=== PATIENT | female | born 1985 | race Caucasian/White ===

== ENCOUNTER 2018-10-02 05:21 | Inpatient (IN) | payer BC ==
[2018-10-02] MEDS ORDERED: Bicitra 30 ML UDCUP PO SCH (05:32)
[2018-10-02] MEDS ORDERED: Promethazine HCl 25 MG/ML VIAL IM PRN ×3 (05:32→10:19)
[2018-10-02] MEDS ORDERED: Lactated Ringer's 1,000 ML IV SCH ×2 (05:32)
[2018-10-02] MEDS ORDERED: Ondansetron PF 4 MG/2 ML Vial IVP PRN ×3 (05:32→10:19)
[2018-10-02] MEDS ORDERED: CEFAZOLIN 2 GM in Premix Bag 1 BAG IVPB SCH (05:32)
[2018-10-02 05:53] VITALS: BMI 43.9
[2018-10-02 06:17] LABS: Hemoglobin 12.2 g/dL (12.0-16.0); Mean Corpuscular HGB CONC 32.5 g/dL (32.0-36.0); Mean Corpuscular Hemoglobin 30.8 pg (27.0-31.0); Mean Corpuscular Volume 94.7 fL (78.0-98.0); Platelet Count 307 thou/uL (130-400); RBC Distribution Width 12.4 % (11.5-14.5); Red Blood Cell (RBC) Count 3.96 mill/uL (4.20-5.40); White Blood Cell (WBC) Count 10.4 thou/uL (4.8-10.8)
[2018-10-02 07:00] LABS: HBSAg Index 0.18 S/CO (0-0.99); Hep B Surf Ag Non-Reactive S/CO (NonReactive); Syphilis Antibody Nonreactive (Nonreactive); Syphilis Antibody Index 0.05 S/CO (<1.00 Non-Reactive)
[2018-10-02] MEDS ORDERED: MORPHINE 5 MG/10 ML PF VIAL ONE (07:21)
[2018-10-02] MEDS ORDERED: Ondansetron PF 4 MG/2 ML Vial ONE ×4 (07:23→13:35)
[2018-10-02] MEDS ORDERED: PHENYLEPHRINE-NS 100 MCG/ML 10 ML SYRINGE ONE ×2 (07:23→13:35)
[2018-10-02] MEDS ORDERED: Ketorolac Tromethamine 30 MG/ML VIAL ONE ×2 (07:23→13:35)
[2018-10-02] MEDS ORDERED: Dexamethasone 4 mg/ml Vial ONE (07:23)
[2018-10-02] MEDS ORDERED: Oxytocin 10 UNITS/ML VIAL ONE (07:23)
--- NOTE | 2018-10-02 08:22 | PDOC.OPDEL ---
OB Operative/Delivery Note Delivery Dr/Surgeon: colton Assist: rene Pre-Delivery Diagnosis: scheduled section (breech prior cs left ut unicornis) Procedure/Post Delivery Dx: repeat low transverse CS Weeks gestation: 39 Anesthesia: spinal - Findings A Sex: male Weight: 0 oz - 1 min: 9 - 5 min: 9 - Additional Findings/Plan Placenta delivered: manual removal Repaired Obstetrical Laceration: none findings: low transverse hysterotomy without extension, other (absent r ovary and tube. ut unicornis left) Estimated blood loss: 500 Post delivery plan: routine recovery
[2018-10-02] MEDS ORDERED: Meperidine HCl/PF 25 MG/ML VIAL SLOW IVP PRN (08:37)
[2018-10-02] MEDS ORDERED: Naloxone HCl 0.4 mg/ml Vial IV PRN (08:37)
[2018-10-02] MEDS ORDERED: diphenhydrAMINE 50 MG/ML VIAL IVP PRN (08:37)
[2018-10-02] MEDS ORDERED: HYDROmorphone 2 MG/ML VIAL SLOW IVP PRN (08:37)
[2018-10-02] MEDS ORDERED: Ondansetron HCl/PF 4 MG/2 ML Vial IVP PRN (08:37)
[2018-10-02] MEDS ORDERED: Eucerin (Mineral Oil/Petrolatum,White) 30 gm Jar TOP PRN (08:37)
[2018-10-02] MEDS ORDERED: Ketorolac Tromethamine 30 MG/ML VIAL IVP PRN (08:37)
[2018-10-02] MEDS ORDERED: Promethazine HCl 25 MG SUPP PR PRN (08:37)
[2018-10-02] MEDS ORDERED: L&D-Morphine 4 MG/ML VIAL SLOW IVP PRN (08:37)
[2018-10-02] MEDS ORDERED: Naloxone HCl 0.4 mg/ml Vial IVP PRN ×2 (08:37)
[2018-10-02] MEDS ORDERED: Ketorolac Tromethamine 30 MG/ML VIAL IVP SCH (08:45)
[2018-10-02] MEDS ORDERED: Communication Order-Pharmacy FS SCH (08:45)
--- NOTE | 2018-10-02 09:30 | OP ---
DATE OF PROCEDURE: 10/02/2018 PREOPERATIVE DIAGNOSES: 1. Prior section x1, breech presentation. 2. 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 POSTOPERATIVE DIAGNOSES: 1. Prior section x1, breech presentation. 2. 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 PROCEDURE PERFORMED: Repeat low transverse section without extension. ASSISTANTS: 1. BLANCA Smallwood. 2. Marcelo Winters DO. ANESTHESIA: Subarachnoid block, Tacho Gill CRNA. MEDICATIONS: 2 g Ancef. PREINCISION: DVT prophylaxis with SCDs. DRAINS: Pulido to gravity. ESTIMATED BLOOD LOSS: Approximately 500 mL. QBL: Pending. OPERATIVE FINDINGS: 1. Male infant, dario breech presentation, clear fluid. Apgars 9 and 9, weight pending, to nursery. 2. Uterus consistent with expected left unicornis with absence of right adnexa. 3. Normal-appearing left tube and ovary. 4. Hemostasis, clear urine. COUNTS: Correct at the end of the procedure. DISPOSITION: Recovery room in good condition. DESCRIPTION OF PROCEDURE: After obtaining appropriate operative consent, the patient was taken to the operating room where subarachnoid block was achieved without difficulty. The patient was prepped and draped in usual manner. Previous Pfannenstiel incision identified, incised sharply and carried down to the fascia. The midline was incised sharply, divided superiorly and laterally, was dissected off the rectus superiorly and inferiorly. Rectus divided in the midline. Peritoneum was entered bluntly, taking care to avoid trauma to the underlying viscera. Mynor O retractor placed inside, level of previous hysterotomy was identified and bladder was noted to be well below this. Low-transverse hysterotomy was made with care to avoid laceration to the 's breech. It was extended superiorly and laterally with finger fractionization. Amniotomy was performed. Clear fluid was noted. 's breech was elevated to the hysterotomy, delivered in a usual corkscrew manner. The infant delivered maintaining flexion of the head. The was suctioned. Cord clamped and cut, handed off to the team in attendance. Usual cord blood sample obtained. Placenta removed manually. Uterus left in situ and hysterotomy noted to be without extension. It was closed using a running locking #1 Monocryl suture x1. Good hemostasis was noted. The gutters were irrigated out bilaterally and reinspection hysterotomy revealed it to be dry. The Mynor O retractor was removed. Rectus was inspected and noted to be dry. Counts were correct x1. Fascia reapproximated using running continuous 0 PDS suture x2. Subcutaneous tissue irrigated, rendered hemostatic with Bovie cautery, reapproximated using a 2-0 plain gut. Skin was reapproximated using a 4-0 Monocryl and Dermabond. The patient was taken to recovery room in good condition. Job ID: [id number]
[2018-10-02] MEDS ORDERED: Prenatal Vitamin 1 TAB PO SCH ×2 (10:19→10:45)
[2018-10-02] MEDS ORDERED: Meperidine HCl/PF 25 MG/ML VIAL IM PRN (10:19)
[2018-10-02] MEDS ORDERED: Docusate Calcium (SURFAK) 240 MG CAP PO SCH ×2 (10:19→10:45)
[2018-10-02] MEDS ORDERED: HYDROcodone/Acetaminophen 5/325 mg Tablet PO PRN ×4 (10:19→22:58)
[2018-10-02] MEDS ORDERED: Adacel (T-DAP) 0.5 ML SYRINGE IM ONE (10:19)
[2018-10-02] MEDS ORDERED: Lanolin Ointment 7 GM TUBE TOP PRN (10:19)
[2018-10-02] MEDS ORDERED: NS / Oxytocin 40 units/1000ml 1,000 ML IV SCH (10:19)
[2018-10-02] MEDS ORDERED: diphenhydrAMINE 25 MG CAP PO PRN (10:19)
[2018-10-02] MEDS ORDERED: Bisacodyl 10 MG SUPP PR PRN (10:19)
[2018-10-02] MEDS: Ibuprofen 800 MG TAB PO SCH ×2 (11:22→21:22)
[2018-10-02] MEDS ORDERED: Dexamethasone 20 MG/5 ML VIAL ONE (13:35)
[2018-10-02] MEDS: Docusate Calcium (SURFAK) 240 MG CAP PO SCH (21:22)
[2018-10-03] MEDS: HYDROcodone/Acetaminophen 5/325 mg Tablet PO PRN ×4 (00:04→20:23)
[2018-10-03] MEDS: Simethicone Chewable 80 MG TAB PO PRN ×2 (03:28→20:23)
[2018-10-03 06:08] LABS: Hemoglobin 10.2 g/dL (12.0-16.0); Mean Corpuscular HGB CONC 32.9 g/dL (32.0-36.0); Mean Corpuscular Hemoglobin 31.7 pg (27.0-31.0); Mean Corpuscular Volume 96.4 fL (78.0-98.0); Platelet Count 265 thou/uL (130-400); RBC Distribution Width 12.5 % (11.5-14.5); Red Blood Cell (RBC) Count 3.21 mill/uL (4.20-5.40); White Blood Cell (WBC) Count 11.7 thou/uL (4.8-10.8)
[2018-10-03] MEDS: Docusate Calcium (SURFAK) 240 MG CAP PO SCH ×2 (08:36→20:23)
[2018-10-03] MEDS: Prenatal Vitamin 1 TAB PO SCH (08:36)
[2018-10-03] MEDS: Ibuprofen 800 MG TAB PO SCH ×3 (08:36→21:25)
[2018-10-04] MEDS: HYDROcodone/Acetaminophen 5/325 mg Tablet PO PRN ×2 (00:28→08:07)
[2018-10-04] MEDS: Simethicone Chewable 80 MG TAB PO PRN (06:15)
[2018-10-04] MEDS: Ibuprofen 800 MG TAB PO SCH (06:15)
[2018-10-04 07:52] VITALS: BP 118/73; TEMP 97.9
[2018-10-04] MEDS: Docusate Calcium (SURFAK) 240 MG CAP PO SCH (08:07)
[2018-10-04] MEDS: Prenatal Vitamin 1 TAB PO SCH (08:07)
== END 2018-10-04 12:20 | disposition home or self-care (01) | DRG 788 ==
LOC: L&D 05:21 → 3SW 10:43
PROVIDERS: ADMIT Obstetrics & Gynecology; ATTEND Obstetrics & Gynecology
PROC: 10D00Z1 Extraction of Products of Conception, Low, Open Approach (ICD-10-PCS; principal; 2018-10-02)
PROC: 10907ZC Drainage of Amniotic Fluid, Therapeutic from Products of Conception, Via Natural or Artificial Opening (ICD-10-PCS; 2018-10-02)
DX: O32.1XX0 Maternal care for breech presentation, not applicable or unspecified (principal); Z3A.39 39 weeks gestation of pregnancy; Z37.0 Single live birth; O34.211 Maternal care for low transverse scar from previous cesarean delivery; O34.03 Maternal care for unspecified congenital malformation of uterus, third trimester; Q51.4 Unicornate uterus; Z90.5 Acquired absence of kidney; Z90.721 Acquired absence of ovaries, unilateral; Z88.2 Allergy status to sulfonamides
CPT/HCPCS: 36415; 51702; 85027; 86780; 86850; 86900; 86901; 87340; J1100; J1885; J2270; J2405; J2590

== ENCOUNTER 2019-06-26 16:14 | Outpatient (CLI) | payer BC | END 2019-06-26 16:15 | disposition home or self-care (01) | LOC: CTENTCT 16:14 | PROVIDERS: ATTEND Otolaryngology Plastic Surgery within the Head & Neck | DX: J34.2 Deviated nasal septum (principal) | CPT/HCPCS: 70486 ==

== ENCOUNTER 2019-07-12 23:25 | Emergency (ER) | payer BC ==
[2019-07-12 23:55] LABS: Bilirubin Negative (Negative); Blood, Urine Negative (Negative); Clarity Turbid (Clear); Glucose, Urine (Dipstick) Normal (Negative); Leukocyte Negative Leu/uL (Negative); Nitrite Negative (Negative); Pregnancy Test - Urine (BHCG) Negative (Negative); Pregu Control Background? CLEAR/WHITE (CLR/WHITE); Pregu Control Bar Appear? YES (CONTROL BAR); Protein, Urine (Dipstick) 20 mg/dL (Neg-Trace)
[2019-07-12 23:57] LABS: Specific Gravity 1.035 (1.002-1.036)
[2019-07-13 00:26] LABS: #Basophils 0.1 thou/uL (0.0-0.2); #Eosinphils 0.2 thou/uL (0.0-0.7); #Lymphocytes 3.6 thou/uL (1.20-3.40); #Monocytes 0.4 thou/uL (0.11-0.59); #Neutrophils 3.4 thou/uL (1.40-6.50); %Basophils 1.3 % (0.0-1.0); %Eosinophils 3.2 % (0.0-10.0); %Lymphocytes 46.6 % (21.0-51.0); %Monocytes 5.5 % (0.0-10.0); %Neutrophils 43.4 % (42.0-75.0); Hemoglobin 13.2 g/dL (12.0-16.0); Mean Corpuscular HGB CONC 33.7 g/dL (32.0-36.0); Mean Corpuscular Hemoglobin 31.8 pg (27.0-31.0); Mean Corpuscular Volume 94.3 fL (78.0-98.0); Mean Platelet Volume 6.8 fL (7.4-10.4); Platelet Count 280 thou/uL (130-400); RBC Distribution Width 11.6 % (11.5-14.5); Red Blood Cell (RBC) Count 4.15 mill/uL (4.20-5.40); White Blood Cell (WBC) Count 7.7 thou/uL (4.8-10.8)
[2019-07-13 00:45] LABS: ALT (SGPT) 13 U/L (8-55); AST (SGOT) 15 U/L (5-34); Albumin 4.2 g/dL (3.5-5.0); Alkaline Phosphatase 70 U/L (40-110); Anion Gap 9 mmol/L (10-20); BUN (Urea Nitrogen) 15 mg/dL (7.0-18.7); Bilirubin, Total 0.3 mg/dL (0.2-1.2); Calc. Creatinine Clearance 0 mL/min (70-130); Calcium 9.1 mg/dL (7.8-10.44); Carbon Dioxide 28 mmol/L (22-29); Chloride 104 mmol/L (98-107); Estimated GFR-MDRD 61; Globulin 2.9 g/dL (2.4-3.5); Glucose 90 mg/dL (70-105); Lipase 21 U/L (8-78); Protein, Total 7.1 g/dL (6.0-8.3); Sodium 137 mmol/L (136-145)
== END 2019-07-13 03:30 | disposition home or self-care (01) ==
LOC: ERS 23:25
DX: R19.7 Diarrhea, unspecified (principal); R10.30 Lower abdominal pain, unspecified
CPT/HCPCS: 36415; 80053; 81003; 81025; 83690; 85025; 99284

== ENCOUNTER 2019-07-16 08:01 | Day surgery (SDC) | payer BC ==
[2019-07-15 09:26] VITALS: BMI 37.6
[2019-07-16] MEDS ORDERED: Fentanyl 250 MCG/5 ML VIAL ONE (08:22)
[2019-07-16] MEDS ORDERED: Scopolamine 1.5 mg/72 hour Patch ONE (08:29)
[2019-07-16] MEDS ORDERED: Lidocaine 1% w/Epinephrine 1:100K 20 ML VIAL ONE (09:50)
[2019-07-16] MEDS ORDERED: Midazolam HCl 2 mg/2 ml Vial ONE (09:52)
[2019-07-16] MEDS ORDERED: Propofol 500 MG/50 ML VIAL ONE (09:54)
[2019-07-16] MEDS ORDERED: Lidocaine 1% PF 5 ML VIAL ONE (10:31)
[2019-07-16] MEDS ORDERED: Ondansetron PF 4 MG/2 ML Vial ONE (10:31)
[2019-07-16] MEDS ORDERED: ePHEDrine/0.9% NaCl/PF SYRINGE 50 mg/10 ml ONE (10:31)
[2019-07-16] MEDS ORDERED: Rocuronium Bromide 10 MG/ML (10ML VIAL) ONE (10:31)
[2019-07-16] MEDS ORDERED: PROPOFOL 200 MG/20 ML VIAL ONE (10:31)
[2019-07-16] MEDS ORDERED: Fentanyl 100 MCG/2 ML VIAL ONE (10:53)
[2019-07-16] MEDS ORDERED: hydrALAZINE 20 MG/ML VIAL ONE (11:08)
--- NOTE | 2019-07-18 09:35 | OP ---
DATE OF PROCEDURE: 07/16/2019 PREOPERATIVE DIAGNOSES: 1. Chronic rhinosinusitis. 2. Bilateral inferior turbinate hypertrophy. 3. Nasal obstruction. POSTOPERATIVE DIAGNOSES: 1. Chronic rhinosinusitis. 2. Bilateral inferior turbinate hypertrophy. 3. Nasal obstruction. PROCEDURES PERFORMED: 1. Bilateral endoscopic sinus surgery, total ethmoidectomies. 2. Bilateral endoscopic sinus surgery, maxillary antrostomies. 3. Bilateral endoscopic sinus surgery, frontal sinusotomies. 4. Bilateral inferior turbinate submucosal resection. ESTIMATED BLOOD LOSS: 20 mL. COMPLICATIONS: None. ANESTHESIA: GETA. DESCRIPTION OF PROCEDURE: After consent was obtained, the patient was identified, brought to the operating room, and placed on the operating table in the supine position. General endotracheal anesthesia and intravenous access were obtained and we proceeded with positioning the patient for oropharyngeal surgery. Following this, 1% lidocaine with 1:100,000 epinephrine were injected into the middle turbinates and lateral nasal wall bilaterally. Following this, the 0-degree endoscope was used to visualize the middle turbinate and the middle turbinate was medially fractured using a Sorrento elevator. Following this, the uncinate process was identified and was examined. The uncinate process was noted to be inflamed and laterally displaced bilaterally. Following this, a ball-ended probe was used to anteriorly fracture the uncinate process bilaterally. Following this, the 0-degree microdebrider and the up-biting Blakesley forceps were used to remove the uncinate process bilaterally. Following this, the natural maxillary sinus ostia was identified with the 0-degree endoscope and the ball-ended probe. The natural maxillary ostia were then widened using a 40-degree microdebrider and the straight Blakesley forceps bilaterally. Following this, the ethmoidal bulla was identified bilaterally. A 0-degree microdebrider was used to puncture the ethmoidal bulla on its medial and inferior aspect bilaterally. Following this, the 0-degree microdebrider and the up-biting Blakesley forceps were used to remove the ethmoidal bulla. Following this, the grand lamella was identified posterior to this area and was punctured using the 0-degree microdebrider bilaterally. Following this, the ethmoidal cells were opened from the posterior to the anterior using the 0-degree microdebrider, the 40-degree microdebrider and the up-biting Blakesley forceps bilaterally. Following this, the 45-degree endoscope and the 40-degree microdebrider blade were used to further remove the anterior ethmoidal cells to the level of the frontal sinus recess bilaterally. Following this, the 45-degree endoscope was advanced into the middle meatus. The nasofrontal duct, which was markedly narrowed was then widened using a 40-degree microdebrider blade and the up-biting Blakesley forceps. Following this, the frontal sinus ostia was visualized bilaterally and was widened by removing bony tissue with the 40-degree microdebrider blade and the up-biting Blakesley forceps bilaterally. Following this, the inferior turbinates were then punctured on the anterior inferior aspect with a submucosal microdebrider and submucosal resection was performed of the anterior and inferior turbinates bilaterally. Following this, the nasal cavity was irrigated. NasoPore packing was placed within the middle meatus. The patient tolerated the procedure well. Job ID: [id number]
== END 2019-07-16 14:00 | disposition home or self-care (01) ==
LOC: SDC 08:01
PROVIDERS: ATTEND Otolaryngology Plastic Surgery within the Head & Neck
PROC: 09BT8ZZ Excision of Left Frontal Sinus, Via Natural or Artificial Opening Endoscopic (ICD-10-PCS; principal; 2019-07-16)
PROC: 099R8ZZ Drainage of Left Maxillary Sinus, Via Natural or Artificial Opening Endoscopic (ICD-10-PCS; principal; 2019-07-16)
PROC: 09BV8ZZ Excision of Left Ethmoid Sinus, Via Natural or Artificial Opening Endoscopic (ICD-10-PCS; principal; 2019-07-16)
PROC: 09BL8ZZ Excision of Nasal Turbinate, Via Natural or Artificial Opening Endoscopic (ICD-10-PCS; principal; 2019-07-16)
PROC: 09BS8ZZ Excision of Right Frontal Sinus, Via Natural or Artificial Opening Endoscopic (ICD-10-PCS; principal; 2019-07-16)
PROC: 09BU8ZZ Excision of Right Ethmoid Sinus, Via Natural or Artificial Opening Endoscopic (ICD-10-PCS; principal; 2019-07-16)
PROC: 099Q8ZZ Drainage of Right Maxillary Sinus, Via Natural or Artificial Opening Endoscopic (ICD-10-PCS; principal; 2019-07-16)
DX: J32.4 Chronic pansinusitis (principal); J34.2 Deviated nasal septum; J34.3 Hypertrophy of nasal turbinates; Z79.899 Other long term (current) drug therapy; Z88.2 Allergy status to sulfonamides
CPT/HCPCS: 36415; 85014; J0131; J0360; J2001; J2250; J2405; J2704; J3010

== ENCOUNTER 2019-07-17 23:16 | Emergency (ER) | payer BC ==
[2019-07-17 23:49] LABS: Bilirubin Large (Negative); Blood, Urine Large (Negative); Glucose, Urine (Dipstick) 100 mg/dL (Negative); Leukocyte Large (Negative); Nitrite Positive (Negative); Protein, Urine (Dipstick) > or equal to 300 mg/dL (Neg-Trace)
[2019-07-17 23:51] LABS: Bacteria/HPF 1+ HPF (None Seen); Clarity Turbid (Clear); RBC/HPF Greater than 50 HPF (0-3)
[2019-07-17 23:52] LABS: Calcium Oxalate Crystals 1+ HPF (None Seen); Other Microscopic Description Less than 2 mL rec'd
[2019-07-18 00:02] LABS: #Basophils 0.1 thou/uL (0.0-0.2); #Eosinphils 0.2 thou/uL (0.0-0.7); #Lymphocytes 3.9 thou/uL (1.20-3.40); #Monocytes 0.6 thou/uL (0.11-0.59); #Neutrophils 5.3 thou/uL (1.40-6.50); %Basophils 0.9 % (0.0-1.0); %Eosinophils 1.7 % (0.0-10.0); %Lymphocytes 38.7 % (21.0-51.0); %Monocytes 5.9 % (0.0-10.0); %Neutrophils 52.7 % (42.0-75.0); Hemoglobin 13.4 g/dL (12.0-16.0); Mean Corpuscular HGB CONC 32.9 g/dL (32.0-36.0); Mean Corpuscular Hemoglobin 31.8 pg (27.0-31.0); Mean Corpuscular Volume 96.6 fL (78.0-98.0); Mean Platelet Volume 6.8 fL (7.4-10.4); Platelet Count 253 thou/uL (130-400); White Blood Cell (WBC) Count 10.1 thou/uL (4.8-10.8)
[2019-07-18 00:29] LABS: ALT (SGPT) 15 U/L (8-55); AST (SGOT) 12 U/L (5-34); Albumin 4.1 g/dL (3.5-5.0); Alkaline Phosphatase 72 U/L (40-110); Anion Gap 11 mmol/L (10-20); BUN (Urea Nitrogen) 13 mg/dL (7.0-18.7); Bilirubin, Total 0.3 mg/dL (0.2-1.2); Calc. Creatinine Clearance 0 mL/min (70-130); Carbon Dioxide 29 mmol/L (22-29); Chloride 105 mmol/L (98-107); Estimated GFR-MDRD 57; Globulin 2.7 g/dL (2.4-3.5); Glucose 99 mg/dL (70-105); Potassium 3.8 mmol/L (3.5-5.1); Protein, Total 6.8 g/dL (6.0-8.3); Sodium 141 mmol/L (136-145)
[2019-07-18 00:33] LABS: Pregnancy Test - Urine (BHCG) Negative (Negative); Pregu Control Background? CLEAR/WHITE (CLR/WHITE); Pregu Control Bar Appear? YES (CONTROL BAR)
--- NOTE | 2019-07-18 07:45 | CT ---
PRELIMINARY REPORT/[facility]/EMERGENCY AFTER HOURS PROCEDURE CT abdomen and pelvis without contrast: Comparison: No Findings: No significant abnormality in the lung bases. No hydronephrosis or symptomatic urinary calculus. Normal gallbladder. No biliary ductal dilatation. The right kidney is absent. Cannot confirm normal uterus. No abnormal adnexal mass. Normal urinary bl adder. The solid organs are otherwise unremarkable within the limits of a noncontrast study. No bowel obstruction, free fluid, free air, abscess or diverticulitis. Prominent colonic stool. Impression: No hydronephrosis or symptomatic urinary calculus. The right kidney is absent. No nephrolithiasis. Suspicious but not definitive for uterine developmental anomaly. Ultrasound or MRI could be considere d to further evaluate if indicated. ELECTRONICALLY SIGNED BY: Jamal Muller MD Jul 18, 2019 1:40:01 AM VEGETABLE PICKER This report is intended for review by the ordering physician only, in accordance of law. If you recei ve this report in error, please call [facility] at [phone]. FINAL REPORT EMERGENCY AFTER HOURS STUDY CT ABDOMEN NONCONTRAST CT PELVIS NONCONTRAST: (Urolithiasis protocol) DATE: 07/18/2019. HISTORY: A 33-year-old female with hematuria and left flank pain. COMPARISON: None available. TECHNIQUE: IV injection of iodinated contrast media: None. Oral contrast media: None. FINDINGS: Other than for urolithiasis, the lack of IV and oral contrast limits the evaluation. Agree with preliminary report by [facility]. IMPRESSION: 1. Absent right kidney. 2. Uterine anomaly. 3. No urolithiasis or obstructive uropathy involving left tract. 4. No acute findings. Transcribed Date/Time: 07/18/2019 8:53 AM
== END 2019-07-18 02:08 | disposition home or self-care (01) ==
LOC: ERS 23:16
DX: N30.90 Cystitis, unspecified without hematuria (principal); F41.9 Anxiety disorder, unspecified
CPT/HCPCS: 36415; 74176; 80053; 81003; 81015; 81025; 85025; 87086

== ENCOUNTER 2019-08-28 11:08 | Outpatient (CLI) | payer BC ==
--- NOTE | 2019-08-28 13:37 | CT ---
CT PELVIS WITH AND WITHOUT IV CONTRAST; HISTORY: Unicornuate uterus. Lower pelvic pain. COMPARISON: CT abdomen and pelvis without contrast from 07/18/2019. FINDINGS: The uterus is again seen at the left aspect of the pelvis. While a unicornuate uterus is a possibilit y, especially given the clinical history, this is difficult to definitively delineate, based on CT ev aluation, although this uterine anomaly is suggested, especially given the patient's clinical history and the overall smaller size of the uterus than normally expected. There is an increased density structure in the right adnexal region with a low density area centrally . This probably represents the patient's right ovary with ovarian cyst. The left ovary is just distal to the fundus of the uterus. No free fluid, fluid collection or lymphadenopathy is seen in the abdomen or pelvis. Loops of small bowel are normal in caliber and have a normal appearance. A small fat-containing umbilical hernia is seen. Osseous structures have a normal appearance. IMPRESSION: 1. CT findings suggesting a uterine anomaly and possibly representing a unicornuate uterus, however t his would be better evaluated with MRI, depending on clinical concern. 2. Increased density structure, right adnexal region, with low density area centrally. This probably represents the patient's right ovary with associated cyst. POS: KELSEY
[2019-08-28] MEDS ORDERED: Iopamidol-370 76% 500 ML 1 ML ONE (14:31)
== END 2019-08-28 11:09 | disposition home or self-care (01) ==
LOC: BICCT 11:08
PROVIDERS: ATTEND Obstetrics & Gynecology
DX: Q51.4 Unicornate uterus (principal)
CPT/HCPCS: 72194; Q9967

== ENCOUNTER 2019-10-30 05:41 | Outpatient (CLI) | payer BC ==
[2019-10-30 09:44] LABS: Mean Corpuscular HGB CONC 33.2 g/dL (32.0-36.0); Mean Corpuscular Hemoglobin 31.8 pg (27.0-31.0); Mean Corpuscular Volume 95.9 fL (78.0-98.0); Mean Platelet Volume 7.1 fL (7.4-10.4); Platelet Count 278 thou/uL (130-400); Red Blood Cell (RBC) Count 4.41 mill/uL (4.20-5.40); White Blood Cell (WBC) Count 6.4 thou/uL (4.8-10.8)
[2019-10-30 09:51] LABS: BHCG - Serum Negative (NEGATIVE); Pregs Control Background? CLEAR/WHITE (CLR/WHITE); Pregs Control Bar Appear? YES (CONTROL BAR)
== END 2019-10-30 05:42 | disposition home or self-care (01) ==
LOC: LABBT 05:41
PROVIDERS: ATTEND Family Medicine
DX: Z01.812 Encounter for preprocedural laboratory examination (principal); N83.9 Noninflammatory disorder of ovary, fallopian tube and broad ligament, unspecified
CPT/HCPCS: 84703; 85027; 86850; 86900; 86901

== ENCOUNTER 2019-11-04 06:01 | Day surgery (SDC) | payer BC ==
[2019-10-30 08:58] VITALS: BMI 38.0
[2019-11-04] MEDS ORDERED: CeleCOXIB 100 MG CAP ONE (06:16)
[2019-11-04] MEDS ORDERED: Midazolam HCl 2 mg/2 ml Vial ONE (06:48)
[2019-11-04] MEDS ORDERED: Scopolamine 1.5 mg/72 hour Patch ONE (06:48)
--- NOTE | 2019-11-04 06:51 | HP ---
REASON FOR ADMISSION: Persistent hypervascular right adnexal mass. HISTORY OF PRESENT ILLNESS: Ms. Fischer is a 33-year-old 3, para 2, AB 1, status post for breech back in 2019. 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 The patient had some pain and right lower quadrant pain in late [address] and ultrasound revealed an adnexal mass separate from the ovary on that side. It seems hypovascular in ring like manner. It seems directly adjacent to the ovary. It seems unlikely to be a rudimentary kidney. However, my suspicion is this is likely some sort of Mullerian remnant or abnormality. Malignancy cannot be ruled out. The patient desires definitive surgical management. APPLICATIONS TESTER HISTORY: As noted. MEDICAL HISTORY: Congenital absence of right kidney. SURGICAL HISTORY: Laparoscopy for ovarian cyst in 2013, C-sections, D and C, and ankle arthroscopy. ALLERGIES: SULFA. MEDICATIONS: Astelin, Nasacort, ibuprofen p.r.n. and paroxetine. SOCIAL: Denies tobacco, alcohol, IV drug use. FAMILY HISTORY: Noncontributory. REVIEW OF SYSTEMS: Noncontributory. PHYSICAL EXAMINATION: VITAL SIGNS: White female, 5 foot 8 inches, 251. BMI 38. Blood pressure 122/78. HEENT: Within normal limits. LUNGS: Clear to auscultation bilaterally. HEART: Regular rate and rhythm. BREASTS: No masses bilaterally. ABDOMEN: Soft and nontender without rebound or guarding. : Vulva without lesions. Vagina without discharge. Cervix normal. Uterus seen deviated left. Mild tenderness and fullness in the right lower quadrant. EXTREMITIES: No clubbing, cyanosis, or edema. No fluid wave noted. RADIOLOGY: Ultrasound in July and then repeated in September revealed persistence of this 2-3 cm hypervascular right adnexal mass separate from the ovary. IMPRESSION: Persistent hypervascular right adnexal mass. Doubt malignancy, but cannot be completely ruled out. 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 PLAN: Discussed with the patient options. We will proceed with laparoscopic right salpingo-oophorectomy versus partial salpingo-oophorectomy on the right with da Timo laparoscopy and bag retrieval. The patient understands risks and benefits of the procedure. Discussed [facility]19 hospital acquisition risks. We will go ahead and proceed with procedure and administer appropriate antibiotic and DVT prophylaxis. Job ID: [id number]
[2019-11-04] MEDS ORDERED: Fentanyl 100 MCG/2 ML VIAL ONE ×2 (06:57→09:19)
[2019-11-04] MEDS ORDERED: Bupivacaine PF 0.5% 30 ML VIAL ONE (07:12)
[2019-11-04] MEDS ORDERED: Lidocaine 1% w/Epinephrine 1:100K 20 ML VIAL ONE (07:12)
[2019-11-04] MEDS ORDERED: Promethazine HCl 25 MG/ML VIAL ONE (09:20)
--- NOTE | 2019-11-04 09:39 | OP ---
DATE OF PROCEDURE: 11/04/2019 PREOPERATIVE DIAGNOSES: Hypervascular painful mass in the right adnexa adjacent to the right ovary with a history of known uterus unicornis and congenital absence of the right kidney. POSTOPERATIVE DIAGNOSES: Hypervascular painful mass in the right adnexa adjacent to the right ovary with a history of known uterus unicornis and congenital absence of the right kidney, noncommunicating 3 to 4 cm right uterine horn with endometriosis of the right adnexa. PROCEDURES PERFORMED: Total laparoscopic resection/hysterectomy of right uterine horn and right salpingo-oophorectomy. CURB ATTENDANT: Shanique Nelson PA-C ANESTHESIA: General endotracheal. ESTIMATED BLOOD LOSS: 25 mL. COMPLICATIONS: None. MEDICATIONS: 2 g Ancef pre-incision. DVT PROPHYLAXIS: SCDs. DRAINS: Pulido to gravity. Clear urine, discontinued at the end of the procedure. OPERATIVE FINDINGS: 1. Approximately, 4 cm right noncommunicating uterine remnant at the level of the round ligament to utero-ovarian ligament and fallopian tube with endometriosis and probable retrograde administration on occasion. 2. Right tube and ovary involved with endometriosis and adhesions. 3. Left unicornuate uterus with normal-appearing bladder, bladder flap, cervix, and left adnexa. 4. Hemostasis, clear urine. COUNTS: Correct at the end of the procedure. DISPOSITION: Recovery room in good condition. Discharged home on outpatient basis. DESCRIPTION OF PROCEDURE: The patient was taken to the operating room, where general endotracheal anesthesia was achieved without difficulty. She was prepped and draped in the usual manner. Sided speculum was placed in vagina. Cervix was identified and grasped with single-toothed tenaculum. Hulka manipulator was placed inside, noted to deviate to the left as anticipated. Pulido catheter was placed. Speculum and tenaculum were removed. Football Scout changed his clothes and turned attention to abdominal portion of the procedure. A 5 mL of Marcaine was injected at the bottom level of the umbilicus. A 12 mm skin incision was made. Veress needle was placed inside the abdominal cavity. Insufflation was carried out with carbon dioxide for a maximum pressure of 15. A 12 mm trocar was placed and confirmation of the entry into the peritoneal cavity without trauma to the underlying viscera was noted. The patient was placed in steep Trendelenburg position and findings as noted in the operative findings were noted. As it became obvious that the hypervascular painful mass adjacent to the right ovary was a rudimentary uterus with noncommunication to the vagina, decision was made to go ahead and remove this as it was contributing to the patient's endometriosis and chronic pelvic pain. The patient was known to have congenital absence of the right kidney. No ureter was identified on that side. Da Timo acquisitions assistant ports were placed lateral, right and left, and an acquisitions assistant port was placed in the right upper quadrant. The umbilical trocar site was enlarged to allow for a GelPOINT to approximately 2.5 cm and then the fascial incision was enlarged as well. The mini Mynor O and GelPOINT were placed and at the level of the umbilicus and the da Timo robot docked with monopolar scissors in the right hand and bipolar fenestrated forceps in the left. The fallopian tube and ovary on the right were mobilized medially. The mesosalpinx was coagulated and transected and the fallopian tube removed. It was noted to insert into the uterine remnant. It was removed from the abdomen and was sent with the rest of the specimen. The ovary was mobilized medially. Adhesions from endometriosis were taken down off the peritoneum and the infundibulopelvic ligament identified, coagulated and transected. The utero-ovarian ligament was coagulated and transected as well, and the ovary was placed in the cul-de-sac for retrieval. The uterus was grasped with an atraumatic grasper and mobilized medially. Round ligament was easily identifiable. The rudimentary uterus' connections to the pelvic sidewall at the level of the round, and where the broad and cardinal ligaments would be, was coagulated and transected. This dissection was carried down. The bladder was noted to not be pulled out to the lower aspect of the uterus. The blood supply for the uterus coming off the pelvic vasculature was identified, coagulated, and transected. It was noted to be quite torturous and prominent, but was easily identifiable and managed. This was carried down to the level, where only a fibrous remnant that would have proceeded toward the lower uterine segment and cervix up those were present was identified. This was coagulated and transected, and the specimen amputated. It was placed in the cul-de-sac of Irwin for retrieval. Suction irrigation was carried out. Good hemostasis was noted. Tisseel was applied across all surgical bad. A 10 mm retrieval bag was placed inside the abdominal cavity through the GelPOINT and a specimen of uterus and ovary was placed into that. The da Timo instruments were then removed. The da Timo undocked. All laparoscopic trocars were removed. The retrieval bag was removed with the specimen inside. Fascial incision for the GelPOINT was identified and grasped and closed using a running continuous 0 Vicryl suture. Subcutaneous tissue was irrigated, rendered hemostatic with Bovie cautery, and skin was reapproximated x4 using 4-0 Monocryl subcuticular and Dermabond. The Hulka and the Pulido were removed. The patient was awakened, extubated and taken to recovery room in good condition. Job ID: [id number]
[2019-11-04] MEDS ORDERED: PHENYLEPHRINE-NS 100 MCG/ML 10 ML SYRINGE ONE (10:14)
[2019-11-04] MEDS ORDERED: Dexamethasone 20 MG/5 ML VIAL ONE (10:14)
[2019-11-04] MEDS ORDERED: Glycopyrrolate 0.2 MG/ML 5 ML SYRINGE ONE (10:14)
[2019-11-04] MEDS ORDERED: Ondansetron PF 4 MG/2 ML Vial ONE (10:14)
[2019-11-04] MEDS ORDERED: Ketorolac Tromethamine 30 MG/ML VIAL ONE (10:14)
[2019-11-04] MEDS ORDERED: Succinylcholine Chloride 20 MG/ML 10 ml SYRINGE FS ONE (10:14)
[2019-11-04] MEDS ORDERED: EPHEDRINE 25 MG/5 ML SYRINGE ONE (10:14)
[2019-11-04] MEDS ORDERED: Lidocaine 1% PF 5 ML VIAL ONE (10:14)
[2019-11-04] MEDS ORDERED: Rocuronium Bromide 10 MG/ML (10ML VIAL) ONE (10:14)
[2019-11-04] MEDS ORDERED: PROPOFOL 200 MG/20 ML VIAL ONE (10:14)
== END 2019-11-04 11:15 | disposition home or self-care (01) ==
LOC: SDC 06:01
PROVIDERS: ATTEND Obstetrics & Gynecology
PROC: 0UB54ZZ Excision of Right Fallopian Tube, Percutaneous Endoscopic Approach (ICD-10-PCS; principal; 2019-11-04)
PROC: 0UB04ZZ Excision of Right Ovary, Percutaneous Endoscopic Approach (ICD-10-PCS; principal; 2019-11-04)
DX: N80.1 Endometriosis of ovary (principal); N80.2 Endometriosis of fallopian tube; N83.201 Unspecified ovarian cyst, right side; Q51.4 Unicornate uterus; Q60.0 Renal agenesis, unilateral; G89.29 Other chronic pain; R10.2 Pelvic and perineal pain; Z79.899 Other long term (current) drug therapy; Z88.2 Allergy status to sulfonamides
CPT/HCPCS: 88305; J0690; J1100; J1885; J2001; J2250; J2405; J2550; J2704; J3010; S0020

== ENCOUNTER 2020-07-05 09:57 | Outpatient (CLI) | payer BC ==
--- NOTE | 2020-07-05 10:40 | ULT ---
Exam: Left renal ultrasound HISTORY: Patient born with only left kidney. Stage III kidney disease. COMPARISON: None FINDINGS: Left kidney: Normal cortical echotexture. No hydronephrosis Left kidney measurements 13.4 x 6.4 x 9.6 cm. Urinary bladder: Normal bladder mucosa. Prevoid volume is 210 mL. Post void volume is 7 mL. IMPRESSION: No hydronephrosis.
== END 2020-07-05 09:58 | disposition home or self-care (01) ==
LOC: BICULT 09:57
PROVIDERS: ATTEND Internal Medicine Nephrology
DX: N18.30 Chronic kidney disease, stage 3 unspecified (principal)
CPT/HCPCS: 76775

== ENCOUNTER 2022-05-25 09:22 | Outpatient (CLI) | payer BC | END 2022-05-25 09:23 | disposition home or self-care (01) | LOC: BICRAD 09:22 | PROVIDERS: ATTEND Physical Therapist | DX: M25.552 Pain in left hip (principal); M54.50 Low back pain, unspecified; R10.84 Generalized abdominal pain ==